=== PATIENT | female | born 1945 | race Caucasian/White ===

== ENCOUNTER 2017-10-12 13:47 | Outpatient (CLI) | payer MEDICARE ==
--- NOTE | 2017-10-12 14:36 | RAD ---
PA AND LATERAL VIEWS OF CHEST: Date: 10/12/17 HISTORY: Cough. Dyspnea. FINDINGS: Comparison made with exam of 09/08/16. Interval development of band of consolidation is seen in the right upper lobe, new since the comparis on study. No pneumothoraces or pleural effusions are identified. IMPRESSION: Findings are suspicious for pneumonia. A follow-up exam after treatment with antibiotics is recommend ed. CODE T. POS: [facility]
== END 2017-10-12 13:48 | disposition home or self-care (01) ==
LOC: RAD 13:47
PROVIDERS: ATTEND Internal Medicine Critical Care Medicine
DX: R06.00 Dyspnea, unspecified (principal)
CPT/HCPCS: 71046

== ENCOUNTER 2017-10-19 15:05 | Outpatient (CLI) | payer MEDICARE ==
--- NOTE | 2017-10-19 15:43 | RAD ---
PA AND LATERAL CHEST: Comparison: 10-12-17, 09-08-16 chest x-rays, review is also made of CT chest performed 01-08-15. FINDINGS: Heart size is within normal limits. Slight prominence to the right hilum and somewhat band like area of parenchymal change in the right upper lobe is again demonstrated, stable as compared to the 8 exam. This density is worrisome in the fact that it is more prominent than it has been on the older studies. The possibility of these changes being caused by an obstructive endobronchial lesion should be considered and chest CT would be suggested for assessment. Incidental note is made of some blunting to the left costophrenic angle which felt to be relatively s table. IMPRESSION: Stable exam as compared to the 10-12-17 study. Findings are still concerning for the possibility that this is some post obstructive changes related to possible endobronchial mass. I would suggest conside ration for CT for further assessment. POS: [facility]
== END 2017-10-19 15:06 | disposition home or self-care (01) ==
LOC: RAD 15:05
PROVIDERS: ATTEND Specialist
DX: J18.9 Pneumonia, unspecified organism (principal)
CPT/HCPCS: 71046

== ENCOUNTER 2017-11-17 14:45 | Inpatient (IN) | payer MEDICARE ==
[2017-11-17 15:52] LABS: #Lymphocytes 0.8 thou/uL (1.20-3.40); #Monocytes 0.4 thou/uL (0.11-0.59); #Neutrophils 6.5 thou/uL (1.40-6.50); %Basophils 0.2 % (0.0-1.0); %Eosinophils 0.3 % (0.0-10.0); %Lymphocytes 10.5 % (21.0-51.0); %Monocytes 4.5 % (0.0-10.0); %Neutrophils 84.5 % (42.0-75.0); Hemoglobin 13.7 g/dL (12.0-16.0); Mean Corpuscular HGB CONC 34.8 g/dL (32.0-36.0); Mean Corpuscular Hemoglobin 32.7 pg (27.0-31.0); Mean Platelet Volume 6.5 fL (7.4-10.4); Platelet Count 261 thou/uL (130-400); RBC Distribution Width 11.5 % (11.5-14.5); White Blood Cell (WBC) Count 7.7 thou/uL (4.8-10.8)
[2017-11-17 16:17] LABS: ALT (SGPT) 13 U/L (8-55); AST (SGOT) 19 U/L (5-34); Albumin 4.4 g/dL (3.4-4.8); Alkaline Phosphatase 52 U/L (40-150); Anion Gap 15 mmol/L (10-20); BUN (Urea Nitrogen) 9 mg/dL (9.8-20.1); Bilirubin, Total 0.7 mg/dL (0.2-1.2); Calc. Creatinine Clearance 0 mL/min (70-130); Calcium 8.9 mg/dL (7.8-10.44); Carbon Dioxide 24 mmol/L (23-31); Chloride 87 mmol/L (98-107); Estimated GFR-MDRD 86; Glucose 121 mg/dL (83-110); Protein, Total 7.4 g/dL (6.0-8.3); Sodium 123 mmol/L (136-145)
[2017-11-17 16:23] LABS: Potassium 2.9 mmol/L (3.5-5.1)
[2017-11-17 16:49] LABS: Bilirubin Negative (Negative); Blood, Urine Small (Negative); Clarity CLEAR (Clear); Glucose, Urine (Dipstick) Negative (Negative); Leukocyte Trace (Negative); Nitrite Negative (Negative); Protein, Urine (Dipstick) 100 mg/dL (Neg-Trace); Specific Gravity, Urine 1.018 (1.002-1.036); Urobilinogen 0.2 mg/dL (0.2-1.0)
[2017-11-17 16:51] LABS: Bacteria/HPF None Seen HPF (None Seen); Hyaline Casts/LPF 0-3 HYALINE CAST LPF (0-3 Hyaline); Pathc Cast-AUWi Flag 0.58 (0-2.49); RBC/HPF 21-50 HPF (0-3); Squamous Epithelial 0-3 HPF (0-3); WBC/HPF 0-3 HPF (0-3)
[2017-11-17] MEDS ORDERED: Pot Chloride/Pot Bicarb/Cit Ac 25 mEq Effervescent Tablet ONE (17:20)
[2017-11-17] MEDS ORDERED: Ondansetron HCl/PF 4 MG/2 ML Vial ONE (18:06)
[2017-11-17] MEDS ORDERED: Pantoprazole 40 MG VIAL ONE (18:20)
[2017-11-17] MEDS ORDERED: Acetaminophen 325 MG TAB PO PRN (21:18)
[2017-11-17] MEDS ORDERED: Ondansetron HCl/PF 4 MG/2 ML Vial IVP PRN (21:18)
[2017-11-17] MEDS ORDERED: Ondansetron ODT 4 MG TAB SL PRN (21:18)
[2017-11-17] MEDS ORDERED: Propafenone HCl 150 MG TAB PO SCH (22:30)
[2017-11-17 22:38] VITALS: BMI 22.5
[2017-11-17] MEDS: Sodium Chloride 0.9% 1,000 ML IV SCH (23:45)
[2017-11-17] MEDS: Potassium Bicarbonate/Cit Ac 25 MEQ TAB PO SCH (23:45)
[2017-11-18 00:11] LABS: Anion Gap 10 mmol/L (10-20); BUN (Urea Nitrogen) 7 mg/dL (9.8-20.1); Calc. Creatinine Clearance 76 mL/min (70-130); Calcium 8.4 mg/dL (7.8-10.44); Carbon Dioxide 26 mmol/L (23-31); Chloride 101 mmol/L (98-107); Estimated GFR-MDRD Greater than 90; Glucose 98 mg/dL (83-110); Potassium 3.1 mmol/L (3.5-5.1); Sodium 134 mmol/L (136-145)
[2017-11-18] MEDS: Propafenone HCl 150 MG TAB PO SCH ×3 (05:34→20:56)
[2017-11-18] MEDS: Potassium Bicarbonate/Cit Ac 25 MEQ TAB PO SCH (05:34)
[2017-11-18] MEDS: Sodium Chloride 0.9% 1,000 ML IV SCH (05:35)
[2017-11-18 05:36] LABS: Anion Gap 11 mmol/L (10-20); BUN (Urea Nitrogen) 8 mg/dL (9.8-20.1); Calc. Creatinine Clearance 73 mL/min (70-130); Calcium 8.6 mg/dL (7.8-10.44); Carbon Dioxide 24 mmol/L (23-31); Chloride 105 mmol/L (98-107); Estimated GFR-MDRD Greater than 90; Glucose 82 mg/dL (83-110); Potassium 3.5 mmol/L (3.5-5.1); Sodium 136 mmol/L (136-145)
--- NOTE | 2017-11-18 08:09 | HP ---
CHIEF COMPLAINT ON ADMISSION: Protracted nausea, vomiting with hyponatremia and hypokalemia. HISTORY OF PRESENT ILLNESS: The patient is a 72-year-old female who had been to see Dr. Mckinnon on the previous day for acute right ankle pain and heel pain. The patient was started on some prednisone, i t sounds like about 30 mg at which time she began to have severe nausea and vomiting and became so pr otracted and unrelenting that she came to the emergency room for further evaluation. There she was n oted to have a low sodium and low potassium. The potassium was 2.9. Sodium was 223 at which time jaycob segura was admitted for IV fluids and antiemetics. PAST MEDICAL HISTORY: Atrial fibrillation, status post ablation x2, paresthesias in the extremities, hyperlipidemia, hypertension. She is menopausal and has anxiety issues. The patient has also had d iverticulitis in the past. She has dyslipidemia. PAST SURGICAL HISTORY: Hysterectomy, right ankle surgery, the aforementioned cardiac ablation x2, brie mpectomy in the right breast and previous biopsy of the right lung. ALLERGIES: SOREN INHIBITORS, CARBOCAINE, IODINE CONTRAST, PENICILLINS and MEPIVACAINE. SOCIAL HISTORY: She is . No smoking, no alcohol. MEDICATIONS ON ADMISSION: Zocor 20 mg at bedtime, Xarelto 20 mg daily, gabapentin 300 mg daily, estr adiol 1 mg daily, Edarbyclor 40/12.5 daily, clonidine 0.1 mg p.r.n. elevated blood pressure, metoprol ol succinate 25 mg daily, propafenone 225 mg t.i.d., and vitamin D 1000 international units daily. REVIEW OF SYSTEMS: CONSTITUTIONAL: At the time of admission constitutionally she denies fever, chills, fatigue. HEENT: Denies eye pain, blurred vision. Denies runny nose, congestion or pain. CHEST: Denies shortness of breath, coughing, wheezing. CARDIOVASCULAR: Denies palpitations or chest pain. EXTREMITIES: She has significant nausea, vomiting. See HPI. MUSCULOSKELETAL: Denies pain in the joints, swelling or erythema. SKIN: No new rashes or lesions. NEUROLOGIC: No trouble with seizures, mentation or focus. ENDOCRINE: Denies swelling, hot flashes, weight gain or loss. HEMATOLOGIC: Denies bruising, bleeding or lower extremity swelling. PHYSICAL EXAMINATION: VITAL SIGNS: At the time of admission, blood pressure 138/88, pulse 81, respirations 18, temperature 98.7 with a pain scale 0/10, and O2 sat 99% on room air. GENERAL: This is a well-developed, well-nourished female, alert, cooperative, no complaint s other than right ankle pain and nausea. HEENT: Normocephalic and atraumatic. Pupils equal, round, and reactive to light. Extraocular muscl es are intact. Arcus senilis bilaterally. TMs, nares clear. Pharynx moist. NECK: Supple, trachea midline, no mass. CHEST: Clear to auscultation. HEART: Regular rate and rhythm, no murmur. BREAST: Deferred. ABDOMEN: Soft, nontender, without hepatosplenomegaly. : Deferred. EXTREMITIES: Without clubbing, cyanosis, or edema. Normal range of motion present. Symmetrical mus cular tone development noted. Good peripheral pulses in upper and lower extremities. SKIN: Without acute rashes, lesions or bruising. NEUROLOGIC: Cranial nerves are intact. Gait and cerebellar function intact. Sensory exam is intact . Mental status is clear and nonfocal. LABORATORY: Lab work on admission shows WBC 7.7, hemoglobin 13.7, hematocrit 39.4 with platelets at 261. Sodium 123, potassium 2.9, CO2 24, BUN 9, creatinine 0.67 with a glucose of 121. Liver functio ns entirely normal. Urinalysis shows 15 ketones, blood, trace leukocyte esterase with 20-50 RBCs. Chest x-ray on previous hospitalization showed a stable exam compared to 10/12/2017, findings are sti ll concerning for possibility of some postobstructive changes related to possible endobronchial mass. CTs for further assessment is recommended. The patient has not had that exam. ASSESSMENT: 1. Protracted nausea and vomiting. 2. Adverse reaction to medication - prednisone. 3. Hypokalemia. 4. Hyponatremia. 5. Right ankle pain. 6. History of benign bronchogenic mass that needs reevaluation. PLAN: The plan is continued IV fluids and antiemetics. A trial of diet starting with clear liquids and serial reevaluation. We will go ahead and get CT of the chest and an MRI of the right ankle to a ssess what is going on with the ankle.
[2017-11-18] MEDS: Gabapentin 300 MG CAP PO SCH (08:23)
[2017-11-18] MEDS: Rivaroxaban 10 MG TAB PO SCH (08:24)
[2017-11-18] MEDS: Estradiol 1 MG TAB PO SCH (08:40)
--- NOTE | 2017-11-18 10:11 | CT ---
CHEST CT SCAN WITHOUT IV CONTRAST: History: 72-year-old female with history of follow up pneumonia. Comparison: Chest PA and lateral, 10-19-17; prior chest CT scan, 01-08-15. FINDINGS: Large nodular mass opacity in the right upper lobe extending from the lateral chest wall into the rig ht hilum. There is nodular fullness in the right hilum, evidence for some adenopathy up to 2 cm. Ther e is also adenopathy in the paratracheal and right sided superior mediastinum with right paratracheal adenopathy up to 1.5 cm and prevascular nodes up to 1.1 cm in diameter. No evidence of pleural effus ion or pericardial effusion. Aortic root measures approximately 3.6 cm. 2.2 cm diameter right adrenal mass and 2.5 cm diameter left adrenal mass. No focal liver masses. IMPRESSION: Somewhat multinodular mass opacity in the right mid chest, right upper lobe extending from the latera l chest into the right hilum with some associated right hilar and right paratracheal, azygous, and pr evascular adenopathy very concerning for primary lung cancer with associated adenopathy. Enlarged rig ht and left adrenal glands worrisome for adrenal metastasis. Follow up PET scan is recommended for further assessment. POS: [facility]
--- NOTE | 2017-11-18 10:37 | CT ---
CT RIGHT FOOT WITHOUT IV CONTRAST: INDICATIONS: Right-sided foot pain. FINDINGS: There is diffuse osteopenia. There are healed, instrumented fractures involving the medial malleolus and the lateral malleolus. No osteochondral defect seen involving the talar dome. The visualized s ubtalar articulation appears within normal limits. A small bone island is present within the cuboid. Lisfranc alignment appears within normal limits. No appreciable enthesopathic change is present. IMPRESSION: 1. No acute osseous abnormality. 2. Diffuse osteopenia. 3. Healed fractures of the medial and lateral malleolus. POS: [facility]
[2017-11-18] MEDS: Simvastatin 20 MG TAB PO SCH (20:56)
[2017-11-19 05:58] LABS: #Basophils 0.1 thou/uL (0.0-0.2); #Lymphocytes 1.5 thou/uL (1.20-3.40); #Monocytes 0.7 thou/uL (0.11-0.59); #Neutrophils 3.5 thou/uL (1.40-6.50); %Basophils 0.9 % (0.0-1.0); %Eosinophils 0.5 % (0.0-10.0); %Lymphocytes 25.7 % (21.0-51.0); %Monocytes 11.9 % (0.0-10.0); Hemoglobin 12.3 g/dL (12.0-16.0); Mean Corpuscular HGB CONC 33.6 g/dL (32.0-36.0); Mean Corpuscular Hemoglobin 33.2 pg (27.0-31.0); Mean Corpuscular Volume 98.8 fl (81.0-99.0); Platelet Count 211 thou/uL (130-400); RBC Distribution Width 11.9 % (11.5-14.5); White Blood Cell (WBC) Count 5.7 thou/uL (4.8-10.8)
[2017-11-19 06:07] LABS: Anion Gap 9 mmol/L (10-20); BUN (Urea Nitrogen) 7 mg/dL (9.8-20.1); Calc. Creatinine Clearance 74 mL/min (70-130); Calcium 8.2 mg/dL (7.8-10.44); Carbon Dioxide 24 mmol/L (23-31); Cardiac Risk 2.6 (Less than 4.5); Chloride 109 mmol/L (98-107); Cholesterol 169 mg/dl (< 200 Desired); Estimated GFR-MDRD Greater than 90; Glucose 78 mg/dL (83-110); HDL Cholesterol 66 mg/dL (>60 Neg Risk); LDL Cholesterol, Calculated 90 mg/dL; Potassium 3.5 mmol/L (3.5-5.1); Sodium 138 mmol/L (136-145); Triglycerides 63 mg/dL (Less than 150)
[2017-11-19] MEDS: Propafenone HCl 150 MG TAB PO SCH ×3 (06:12→20:36)
[2017-11-19] MEDS: Gabapentin 300 MG CAP PO SCH (07:58)
[2017-11-19] MEDS: Estradiol 1 MG TAB PO SCH (07:58)
[2017-11-19] MEDS: Rivaroxaban 10 MG TAB PO SCH (07:58)
--- NOTE | 2017-11-19 12:09 | CON ---
DATE OF CONSULTATION: 11/19/2017 REASON FOR CONSULTATION: Right side of the lung mass. HISTORY OF PRESENT ILLNESS: Ms. Mcleod is a pleasant 72-year-old female, who I have known for many ye ars, originally saw her back in 2014 for a spot on the right lung. At that time, she underwent a bro nchoscopy, which was negative. She underwent a PET scan, which showed no uptake. This was thought t o be arteriovenous malformation. It has been followed off and on in the office for the last 3 years without any growth. She saw me in mid September for routine follow up in the office. She was doing w ell, but her x-ray showed a change in the right upper lobe. I will order a CT scan at that time, but the patient has been putting that off. She came to the hospital yesterday with nausea, vomiting, hy ponatremia, and hypokalemia. She was complaining of right ankle pain and right heel pain that is bet ter today. She underwent a CT of the chest, which demonstrated a definite mass in the lateral aspect of the right upper lobe. It looked like there is probably right hilar and right paratracheal adenop athy. She also had enlarged right and the left adrenal gland suspicious for metastasis. PAST MEDICAL HISTORY: 1. Atrial fibrillation. 2. Small right upper lobe density. 3. Cardiac ablation. 4. Hyperlipidemia. 5. Hypertension. PAST SURGICAL HISTORY: 1. Hysterectomy. 2. Right ankle surgery. 3. Right breast surgery. ALLERGIES: SOREN INHIBITORS, CARBOCAINES, IODINE, PENICILLIN, MEPIVACAINE. SOCIAL HISTORY: Nonsmoker, does not consume alcohol. She has never been a smoker. MEDICATIONS PRIOR TO ADMISSION: Zocor, Xarelto, gabapentin, estradiol, clonidine, metoprolol, and pr opafenone. REVIEW OF SYSTEMS: She denies any weight loss. No cough, no hemoptysis. PHYSICAL EXAMINATION: VITAL SIGNS: Temperature 97.4, pulse 65, respirations 18, and O2 saturation 98% on room air. GENERAL: She is awake and alert. She is quite tearful. HEENT: Unremarkable. NECK: Without adenopathy or JVD. LUNGS: Clear without wheezing or rhonchi. CARDIAC: S1 and S2, regular. ABDOMEN: Soft. EXTREMITIES: No edema. LABORATORY DATA: White blood cell count 5.7, hematocrit 36.8, platelet count 211. Sodium 138, potas sium 3.5, chloride 109, CO2 of 24, BUN 7, creatinine 0.6, glucose 78. Cortisol level has not been do ne at this point. I reviewed her CT scan in detail. ASSESSMENT: 1. Gross enlargement of right peritracheal right hilar lymph nodes along with a new mass density lat erally on the right. This is very suspicious for cancer. 2. Possible adrenal metastasis. 3. Electrolyte problems at the time of admission. This could be from renal insufficiency. PLAN: She needs a bronchoscopy with biopsy. I am trying to schedule that for Tuesday or Tuesday. We need to check her adrenal function. Therefore, cortisol will be ordered. Seventy minutes of time was spent performing consultation; of that time greater than 50% was spent wi th the patient and/or in the patient's unit.
[2017-11-19] MEDS: Simvastatin 20 MG TAB PO SCH (20:36)
[2017-11-20] MEDS: Propafenone HCl 150 MG TAB PO SCH ×3 (06:02→20:47)
[2017-11-20] MEDS: Rivaroxaban 10 MG TAB PO SCH (08:30)
[2017-11-20] MEDS: Estradiol 1 MG TAB PO SCH (08:30)
[2017-11-20] MEDS: Gabapentin 300 MG CAP PO SCH (08:31)
--- NOTE | 2017-11-20 10:51 | PRG ---
DATE OF SERVICE: 11/20/2017 SUBJECTIVE: She is in better spirits today than she was yesterday. OBJECTIVE: VITAL SIGNS: Temperature 98.1, pulse 68, respirations 18, O2 sat 97%, blood pressure 143/93. HEENT: Unremarkable. NECK: No JVD. LUNGS: Clear without wheezing. CARDIAC: S1 and S2 regular. ABDOMEN: Soft. EXTREMITIES: No edema. ASSESSMENT: Right upper lobe lung mass. PLAN: Bronchoscopy under general anesthesia tomorrow. I discussed risk with the patient including b leeding, infection, and accidental lung puncture. She has agreed to proceed. I will go ahead and ho ld her Xarelto as to minimize her chances of bleeding. Preoperative bronchoscopy orders are in the c [facility].
[2017-11-20] MEDS ORDERED: Zolpidem Tartrate 5 MG TAB PO PRN (11:09)
[2017-11-20] MEDS: Simvastatin 20 MG TAB PO SCH (20:45)
[2017-11-21] MEDS: Propafenone HCl 150 MG TAB PO SCH ×3 (06:29→14:55)
[2017-11-21] MEDS ORDERED: Sodium Chloride 0.9% 1,000 ML IV SCH (07:00)
[2017-11-21] MEDS ORDERED: SUGAMMADEX SODIUM 500 MG/5 ML VIAL ONE (08:42)
[2017-11-21] MEDS ORDERED: SUGAMMADEX SODIUM 200 MG/2 ML VIAL ONE (08:42)
[2017-11-21] MEDS ORDERED: Promethazine HCl 25 MG/ML VIAL IM PRN (08:53)
[2017-11-21] MEDS ORDERED: Meperidine HCl/PF 25 MG/ML VIAL SLOW IVP PRN (08:53)
[2017-11-21] MEDS ORDERED: Morphine Sulfate 2 MG/ML SYRINGE SLOW IVP PRN (08:53)
[2017-11-21] MEDS ORDERED: Ondansetron HCl/PF 4 MG/2 ML Vial IVP PRN (08:53)
[2017-11-21] MEDS ORDERED: Promethazine HCl 25 MG/ML VIAL SLOW IVP PRN (08:53)
[2017-11-21] MEDS ORDERED: Fentanyl 100 MCG/2 ML VIAL ONE (08:58)
--- NOTE | 2017-11-21 09:19 | OP ---
DATE OF PROCEDURE: 11/21/2017 SURGEON: Everton Silva M.D. PROCEDURE: Bronchoscopy. PREOPERATIVE DIAGNOSIS: Right upper lobe mass. POSTOPERATIVE DIAGNOSIS: Right upper lobe endobronchial mass in the lateral segment of the right upp er lobe. ANESTHESIA: General endotracheal anesthesia. DESCRIPTION OF PROCEDURE: Informed consent was obtained from the patient. She was brought to the en doscopy suite. She was placed on cardiopulmonary monitoring. She was intubated with an 8.0 endotrac heal tube by the Anesthesia team. She was placed on mechanical ventilation under general anesthesia for the duration of the procedure. The bronchoscope was placed into the endotracheal tube. The kermit was sharp. The left upper lobe, left lower lobe and left main stem bronchus were normal in appearance. The right mainstem bronchus, right middle lobe, and right lower lobe were normal in appearance. The right upper lobe was normal i n appearance up until the bifurcation of the 3 subsegments. It looked like there was tumor involved in the lateral and posterior segments, but spared the superior segment. A series of endobronchial br ushings were done in the aforementioned segments. Fluoroscopy was used. Endobronchial biopsies were also performed. There was minimal bleeding. She tolerated the procedure well. She was transported to the recovery area in stable condition.
[2017-11-21] MEDS: Estradiol 1 MG TAB PO SCH (11:43)
[2017-11-21] MEDS: Gabapentin 300 MG CAP PO SCH (11:44)
[2017-11-21] MEDS ORDERED: Glycopyrrolate 0.2 MG/ML 5 ML SYRINGE ONE (15:33)
[2017-11-21] MEDS ORDERED: Lidocaine 1% PF 5 ML VIAL ONE (15:33)
[2017-11-21] MEDS ORDERED: PROPOFOL 200 MG/20 ML VIAL ONE (15:33)
[2017-11-21 17:10] VITALS: BP 135/85; TEMP 98
[2017-11-22] MEDS ORDERED: Rivaroxaban 10 MG TAB PO SCH (09:00)
[2017-11-24 10:21] LABS: Fungus Stain Final report (.)
[2017-12-21 05:17] LABS: Fungus Culture Final report (.)
== END 2017-11-21 15:59 | disposition home or self-care (01) | DRG 641 ==
LOC: ERS 14:45 → ERHOLD 20:23 → T4-B 21:33
PROVIDERS: ADMIT Specialist; ATTEND Specialist
PROC: 0BD48ZX Extraction of Right Upper Lobe Bronchus, Via Natural or Artificial Opening Endoscopic, Diagnostic (ICD-10-PCS; principal; 2017-11-21)
DX: E87.1 Hypo-osmolality and hyponatremia (principal); I48.91 Unspecified atrial fibrillation; E87.6 Hypokalemia; E78.5 Hyperlipidemia, unspecified; I10 Essential (primary) hypertension; F41.9 Anxiety disorder, unspecified; T38.0X5A Adverse effect of glucocorticoids and synthetic analogues, initial encounter; R91.8 Other nonspecific abnormal finding of lung field; M25.571 Pain in right ankle and joints of right foot
CPT/HCPCS: 36415; 71250; 80048; 80053; 80061; 81003; 81015; 82533; 85025; 87070; 87086; 87102; 87116; 87205; 87206; 88104; 88112; 88305; 88313; 88341; 88342; 96361; 96374; 96375; A4216; C9113; J2001; J2405; J2704; J3010

== ENCOUNTER 2017-12-01 10:19 | Outpatient (CLI) | payer MEDICARE ==
--- NOTE | 2017-12-02 07:27 | PET ---
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 The e xam is requested for initial staging. TECHNIQUE: PET scanning with CT attenuation was performed from the base of the brain through the proximal thighs following the intravenous administration of 11.5 mCi [id number] in the right antecubital fossa. Imagin g was performed after an uptake interval of 45 minutes. COMPARISON: None. CORRELATION: CT chest without contrast dated 11/18/17. FINDINGS: There are multiple hypermetabolic mediastinal lymph nodes with a maximum SUV of 10.3 in the right par atracheal region. Hypermetabolic lymph nodes in the right hilum demonstrate a SUV of 11.3. The righ t upper lobe lung mass seen on the CT scan has increased FDG localization and a SUV of 9.7. There are hypermetabolic adrenal masses with a SUV of 5.7 on the right and 3.0 on the left. There is mildly increased uptake in the spinous process of T1 vertebra with a SUV of 2.5. Nonhyperme tabolic sclerotic foci is seen in the left iliac bone. There is physiologic activity in the GI and tracts. No hypermetabolic liver lesion seen. The CT scan used for attenuation correction demonstrates no evidence of pleural effusions or ascites. IMPRESSION: 1. Right lung malignancy with mediastinal and right hilar lymph lakisha and bilateral adrenal metastas es. 2. Equivocal finding in the spinous process of T1. The nonhypermetabolic sclerotic foci in the left iliac bone may either be due to sclerotic metastases or bone islands. Further evaluation with bone scan would be helpful. POS: [facility]
== END 2017-12-01 10:20 | disposition home or self-care (01) ==
LOC: PET 10:19
PROVIDERS: ATTEND Specialist
DX: C34.90 Malignant neoplasm of unspecified part of unspecified bronchus or lung (principal); C77.1 Secondary and unspecified malignant neoplasm of intrathoracic lymph nodes; C79.71 Secondary malignant neoplasm of right adrenal gland; C79.72 Secondary malignant neoplasm of left adrenal gland; C78.1 Secondary malignant neoplasm of mediastinum
CPT/HCPCS: 78815; A9552

== ENCOUNTER 2018-01-22 10:27 | Emergency (ER) | payer MEDICARE ==
[2018-01-22 11:07] LABS: Hemoglobin 10.8 g/dL (12.0-16.0); Mean Corpuscular HGB CONC 34.1 g/dL (32.0-36.0); Mean Corpuscular Hemoglobin 32.9 pg (27.0-31.0); Mean Corpuscular Volume 96.3 fl (81.0-99.0); Mean Platelet Volume 6.3 fL (7.4-10.4); Platelet Count 386 thou/uL (130-400); RBC Distribution Width 12.7 % (11.5-14.5); White Blood Cell (WBC) Count 25.6 thou/uL (4.8-10.8)
[2018-01-22 11:24] LABS: Band 4 % (5-11); Lymphocytes 2 % (21-51); MDiff Complete? YES; Neutrophil 94 % (42-75)
[2018-01-22 11:31] LABS: ALT (SGPT) 37 U/L (8-55); AST (SGOT) 17 U/L (5-34); Alkaline Phosphatase 117 U/L (40-150); Anion Gap 10 mmol/L (10-20); BUN (Urea Nitrogen) 15 mg/dL (9.8-20.1); Bilirubin, Total 1.1 mg/dL (0.2-1.2); Calc. Creatinine Clearance 0 mL/min (70-130); Calcium 9.4 mg/dL (7.8-10.44); Carbon Dioxide 26 mmol/L (23-31); Chloride 96 mmol/L (98-107); Estimated GFR-MDRD 89; Globulin 2.4 g/dL (2.4-3.5); Glucose 103 mg/dL (83-110); Potassium 4.1 mmol/L (3.5-5.1); Protein, Total 6.4 g/dL (6.0-8.3); Sodium 128 mmol/L (136-145)
[2018-01-22 11:37] LABS: Bilirubin Negative (Negative); Blood, Urine Negative (Negative); Clarity CLEAR (Clear); Glucose, Urine (Dipstick) Negative (Negative); Leukocyte Trace (Negative); Nitrite Negative (Negative); Protein, Urine (Dipstick) Negative (Neg-Trace); Specific Gravity, Urine 1.007 (1.002-1.036); Urobilinogen 0.2 mg/dL (0.2-1.0)
[2018-01-22 11:40] LABS: Bacteria/HPF None Seen HPF (None Seen); Hyaline Casts/LPF 0-3 HYALINE CAST LPF (0-3 Hyaline); RBC/HPF 0-3 HPF (0-3); Squamous Epithelial None Seen HPF (0-3); WBC/HPF 0-3 HPF (0-3)
== END 2018-01-22 14:35 | disposition home or self-care (01) ==
LOC: ERS 10:27
DX: E86.0 Dehydration (principal); E78.5 Hyperlipidemia, unspecified; I10 Essential (primary) hypertension; I48.91 Unspecified atrial fibrillation; Z79.899 Other long term (current) drug therapy; Z79.01 Long term (current) use of anticoagulants
CPT/HCPCS: 36415; 80053; 81003; 81015; 85025; 96360; 96361

== ENCOUNTER 2019-01-07 13:59 | Emergency (ER) | payer MEDICARE ==
[2019-01-07] MEDS ORDERED: Ketorolac Tromethamine 30 MG/ML VIAL ONE (14:56)
== END 2019-01-07 16:12 | disposition home or self-care (01) ==
LOC: ERS 13:59
DX: M46.1 Sacroiliitis, not elsewhere classified (principal); E78.5 Hyperlipidemia, unspecified; I10 Essential (primary) hypertension; I48.91 Unspecified atrial fibrillation; Z85.118 Personal history of other malignant neoplasm of bronchus and lung
CPT/HCPCS: 87086; 96372; J1885

== ENCOUNTER 2019-01-21 11:53 | Emergency (ER) | payer MEDICARE ==
[2019-01-21 12:18] LABS: #Lymphocytes 0.4 thou/uL (1.20-3.40); #Monocytes 0.7 thou/uL (0.11-0.59); #Neutrophils 6.6 thou/uL (1.40-6.50); %Eosinophils 0.2 % (0.0-10.0); %Lymphocytes 5.7 % (21.0-51.0); %Monocytes 9.2 % (0.0-10.0); %Neutrophils 84.9 % (42.0-75.0); Hemoglobin 9.7 g/dL (12.0-16.0); Mean Corpuscular HGB CONC 33.1 g/dL (32.0-36.0); Mean Corpuscular Hemoglobin 32.2 pg (27.0-31.0); Mean Corpuscular Volume 97.1 fL (78.0-98.0); Mean Platelet Volume 6.8 fL (7.4-10.4); Platelet Count 314 thou/uL (130-400); RBC Distribution Width 14.4 % (11.5-14.5); White Blood Cell (WBC) Count 7.8 thou/uL (4.8-10.8)
[2019-01-21] MEDS ORDERED: Morphine 4 MG/ML VIAL ONE ×2 (12:22→13:36)
[2019-01-21] MEDS ORDERED: Metoclopramide HCl 10 MG/2 ML VIAL ONE (12:23)
[2019-01-21 12:41] LABS: ALT (SGPT) 15 U/L (8-55); AST (SGOT) 27 U/L (5-34); Albumin 3.7 g/dL (3.4-4.8); Alkaline Phosphatase 296 U/L (40-150); Anion Gap 16 mmol/L (10-20); BUN (Urea Nitrogen) 12 mg/dL (9.8-20.1); Bilirubin, Total 0.4 mg/dL (0.2-1.2); Calc. Creatinine Clearance 0 mL/min (70-130); Calcium 9.1 mg/dL (7.8-10.44); Carbon Dioxide 24 mmol/L (23-31); Chloride 96 mmol/L (98-107); Estimated GFR-MDRD 82; Globulin 3.2 g/dL (2.4-3.5); Glucose 112 mg/dL (83-110); Potassium 3.5 mmol/L (3.5-5.1); Protein, Total 6.9 g/dL (6.0-8.3); Sodium 132 mmol/L (136-145)
--- NOTE | 2019-01-21 12:41 | RAD ---
EXAM: Single view of the chest HISTORY: Nausea and vomiting. History of lung cancer COMPARISON: 07/22/2016 FINDINGS: Single view of the chest shows a normal sized cardiomediastinal silhouette. Scarring is se en in the midportion of the right thorax. There is no evidence of consolidation, mass, or pleural effusion. The bones are unremarkable. IMPRESSION: No evidence of acute cardiopulmonary disease
[2019-01-21] MEDS ORDERED: diphenhydrAMINE 50 MG/ML VIAL ONE (12:48)
[2019-01-21 13:30] LABS: Bilirubin Negative (Negative); Blood, Urine Negative (Negative); Clarity CLEAR (Clear); Glucose, Urine (Dipstick) Negative (Negative); Leukocyte Negative (Negative); Nitrite Negative (Negative); Protein, Urine (Dipstick) Negative (Neg-Trace); Specific Gravity, Urine 1.008 (1.002-1.036); Urobilinogen 0.2 mg/dL (0.2-1.0); pH, Urine 7.5 (5.0-9.0)
== END 2019-01-21 14:21 | disposition home or self-care (01) ==
LOC: ERS 11:53
DX: M79.89 Other specified soft tissue disorders (principal); R53.1 Weakness; R11.2 Nausea with vomiting, unspecified; I48.91 Unspecified atrial fibrillation; E78.5 Hyperlipidemia, unspecified; I10 Essential (primary) hypertension; Z79.899 Other long term (current) drug therapy
CPT/HCPCS: 36415; 71045; 80053; 81003; 83605; 84484; 85025; 87040; 93005; 96365; 96375; J1200; J2270; J2765

== ENCOUNTER 2019-04-03 12:05 | Observation (INO) | payer MEDICARE ==
[2019-04-03] MEDS ORDERED: hydrALAZINE 20 MG/ML VIAL ONE (12:37)
[2019-04-03] MEDS ORDERED: Labetalol HCl 100 MG/20 ML VIAL ONE ×2 (12:42→12:44)
[2019-04-03 13:09] LABS: #Basophils 0.2 thou/uL (0.0-0.2); #Lymphocytes 0.2 thou/uL (1.20-3.40); #Monocytes 0.7 thou/uL (0.11-0.59); #Neutrophils 6.4 thou/uL (1.40-6.50); %Eosinophils 0.6 % (0.0-10.0); %Lymphocytes 2.5 % (21.0-51.0); %Monocytes 8.8 % (0.0-10.0); %Neutrophils 86.1 % (42.0-75.0); Hemoglobin 10.6 g/dL (12.0-16.0); MDiff Complete? YES; Mean Corpuscular HGB CONC 33.2 g/dL (32.0-36.0); Mean Corpuscular Hemoglobin 30.8 pg (27.0-31.0); Mean Corpuscular Volume 92.6 fL (78.0-98.0); Mean Platelet Volume 8.8 fL (7.4-10.4); Platelet Count 61 thou/uL (130-400); Platelet Morphology Comment Appears Decreased; Polychromasia SLIGHT = 2-3 cells (100X) (0-2/hpf); RBC Distribution Width 19.8 % (11.5-14.5); Red Blood Cell (RBC) Count 3.44 mill/uL (4.20-5.40); White Blood Cell (WBC) Count 7.4 thou/uL (4.8-10.8)
--- NOTE | 2019-04-03 13:11 | CT ---
CT BRAIN WITHOUT CONTRAST: HISTORY:Nausea and generalized weakness, lung cancer. Currently on oral chemotherapy COMPARISON:06/07/2016 FINDINGS: There are foci of decreased attenuation in the periventricular white matter, consistent with chronic small vessel ischemic disease. No evidence of acute infarct, hemorrhage, midline shift or abnormal extra-axial fluid collections is seen. The ventricular size is appropriate and the basilar cisterns are patent. The bony calvarium is intact. The visualized paranasal sinuses and mastoid air cells are well aerated. Absence of IV contrast precludes exclusion of metastatic disease. IMPRESSION: No CT evidence of acute intracranial process.
[2019-04-03 13:17] LABS: ALT (SGPT) 33 U/L (8-55); AST (SGOT) 58 U/L (5-34); Albumin 3.4 g/dL (3.4-4.8); Alkaline Phosphatase 266 U/L (40-150); Anion Gap 14 mmol/L (10-20); BUN (Urea Nitrogen) 39 mg/dL (9.8-20.1); Bilirubin, Total 0.5 mg/dL (0.2-1.2); Calc. Creatinine Clearance 0 mL/min (70-130); Calcium 8.6 mg/dL (7.8-10.44); Carbon Dioxide 19 mmol/L (23-31); Chloride 97 mmol/L (98-107); Estimated GFR-MDRD 60; Globulin 2.1 g/dL (2.4-3.5); Glucose 75 mg/dL (83-110); Potassium 5.4 mmol/L (3.5-5.1); Protein, Total 5.5 g/dL (6.0-8.3); Sodium 125 mmol/L (136-145)
--- NOTE | 2019-04-03 13:17 | RAD ---
XR Chest 1 View Portable HISTORY: Lung cancer COMPARISON: 01/21/2019 FINDINGS: There has been interval development of a right-sided pleural effusion. The heart size is normal. The aorta is tortuous. The left lung is clear. Scarring in the right midlung is again seen. Increased density in the right midlung may either be due to fluid in the fissure or underlying mass.
[2019-04-03] MEDS ORDERED: Ondansetron ODT 4 MG TAB ONE (13:33)
[2019-04-03 13:39] LABS: CKMB 6.5 ng/mL (0-6.6)
[2019-04-03] MEDS ORDERED: Aspirin Chewable 81 MG TAB ONE (14:56)
[2019-04-03] MEDS ORDERED: Ondansetron PF 4 MG/2 ML Vial ONE (15:06)
[2019-04-03 15:29] LABS: Bacteria/HPF 1+ HPF (None Seen); Bilirubin Negative (Negative); Blood, Urine Negative (Negative); Clarity Clear (Clear); Glucose, Urine (Dipstick) Normal (Negative); Leukocyte 250 Leu/uL (Negative); Nitrite Negative (Negative); Protein, Urine (Dipstick) 30 mg/dL (Neg-Trace); RBC/HPF 0-3 HPF (0-3); Squamous Epithelial 0-3 HPF (0-3); Urobilinogen Normal mg/dL (Less than 2); WBC/HPF 21-50 HPF (0-3)
[2019-04-03] MEDS ORDERED: cefTRIAXone\\ROCEPHIN 2 GM VIAL ONE (15:51)
[2019-04-03] MEDS ORDERED: Ondansetron ODT 4 MG TAB SL PRN (16:52)
[2019-04-03] MEDS ORDERED: HYDROcodone/Acetaminophen 5/325 mg Tablet PO PRN ×2 (16:52)
[2019-04-03] MEDS ORDERED: Ondansetron PF 4 MG/2 ML Vial IVP PRN (16:52)
[2019-04-03] MEDS ORDERED: Sodium Chloride 0.9% 1,000 ML IV SCH (16:52)
[2019-04-03 16:59] LABS: Troponin I 0.046 ng/mL (< 0.028)
[2019-04-03] MEDS: traMADol HCl 50 MG TAB PO PRN ×2 (18:16→22:49)
[2019-04-03 19:39] LABS: Troponin I 0.041 ng/mL (< 0.028)
[2019-04-03] MEDS ORDERED: Acetaminophen 325 MG TAB PO PRN (19:43)
[2019-04-03] MEDS ORDERED: Ondansetron ODT 4 MG TAB PO PRN (19:43)
[2019-04-03] MEDS ORDERED: Pantoprazole 40 MG VIAL IVP SCH (20:00)
[2019-04-03 20:29] LABS: Anion Gap 16 mmol/L (10-20); BUN (Urea Nitrogen) 32 mg/dL (9.8-20.1); Calc. Creatinine Clearance 50 mL/min (70-130); Calcium 8.4 mg/dL (7.8-10.44); Carbon Dioxide 15 mmol/L (23-31); Chloride 99 mmol/L (98-107); Estimated GFR-MDRD 68; Glucose 100 mg/dL (83-110); Potassium 4.9 mmol/L (3.5-5.1); Sodium 125 mmol/L (136-145)
[2019-04-03] MEDS: Dextrose 5 % And 0.9 % NaCl 1,000 ML IV SCH (21:14)
--- NOTE | 2019-04-03 23:06 | HP ---
PRIMARY CARE PHYSICIAN: Dr. Larsen. ONCOLOGIST: Dr. Barraza at [facility]. CHIEF COMPLAINT: Generalized weakness and also difficulty swallowing. HISTORY OF PRESENT ILLNESS: The history of present illness is taken primarily from the who is at the bedside. However, the patient does contribute some information to the history as she is extremely weak. Ms. Mcleod is a very pleasant 73-year-old female, who has a history of stage IV adenocarcinoma of the lungs. She has been receiving treatment at [facility]. 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 He says that after this she has been getting extremely weak and she was admitted to the hospital there at [facility] after she was so weak that she was having difficulty walking. This was about a month ago. It was felt that she was severely hyponatremic. Apparently at that time, she was also complaining of some back pain and was told that she had some lesions in her arms as well as her liver. She is unclear whether or not there was any lumbar vertebral lesions or not, but apparently they treated her there. She says over the course of approximately 10 days and then was released, but says that her weakness never really got better and in fact it has gotten progressively worse. She says that in the last 3-4 days, she started feeling extremely nauseated, sometimes the nausea is worse after eating and she also says that she has been vomiting as well at least 4-5 times a day and then today she could barely keep anything down. Her says that he tried to give her a pain medication earlier today and she could not swallow it. She was choking on it and at this point, he felt it was time to bring her in for further evaluation. The patient denies any abdominal pain. She also denies any pain with swallowing. She has not had any hematemesis and there has been no melena. No blood in the stool. There has been no fevers, no chills, and she also admits that her appetite is poor as well. The patient denies any fevers or chills and otherwise no other symptoms. In the ER, she was evaluated and was found to have a sodium, which is slightly lower than her baseline at 125 with a baseline of approximately 128. Her potassium was slightly elevated and she appears to be clinically dehydrated and she is being placed on observation for further evaluation. REVIEW OF SYSTEMS: CONSTITUTIONAL: There has been no fevers, chills, no night sweats, no weight loss. HEENT: She denies any headaches. No dizziness. No visual changes. No sore throat or rhinorrhea. NECK: No neck pain, no adenopathy. PULMONARY: She has had a dry cough, occasional shortness of breath, but no wheezing. No rhonchi. CARDIOVASCULAR: She denies any chest pain. No PND. No orthopnea. She does admit to some lower extremity edema. GASTROINTESTINAL: As in history of present illness. GENITOURINARY: No urinary frequency, no hematuria, no hesitancy. MUSCULOSKELETAL: She admits to generalized lower extremity weakness, but no joint pains or swelling. SKIN AND INTEGUMENT: She did does not admit any skin changes or any rashes. PSYCHIATRIC: No symptoms of anxiety or depression. ENDOCRINE: No heat or cold intolerance. PAST MEDICAL HISTORY: Significant for chronic atrial fibrillation, hyperlipidemia, hypertension, diverticulitis as well as stage IV adenocarcinoma of the lungs. PAST SURGICAL HISTORY: She has had a hysterectomy, right ankle surgery, cardiac ablation, lumpectomy of the right breast and right lung biopsy. ALLERGIES: SOREN INHIBITORS, PENICILLIN, MEPIVACAINE, IV CONTRAST. SOCIAL HISTORY: She is currently and her is her medical power of workers compensation attorney. His name is Gurdeep Cheung. She would like to be a full code. She is a nonsmoker and nondrinker. FAMILY HISTORY: Significant for hypertension. CURRENT MEDICATIONS: Include: 1. Tagrisso 80 mg daily. 2. Samsca 15 mg once daily. 3. Gabapentin 300 mg daily. 4. Tramadol 50 mg daily. 5. Glycolax 17 g twice daily. 6. Robaxin 500 mg as needed. 7. Calcium citrate plus vitamin D daily. 8. Vitamin B12 500 mcg daily. 9. Magnesium oxide 400 mg daily. 10. Edarbyclor 40/12.5 mg daily. 11. Simvastatin 20 mg daily. 12. Xarelto 15 mg daily. 13. Estrace 1 mg daily. 14. Metoprolol extended release 25 mg daily. 15. Rythmol 225 mg daily. 16. Cholecalciferol. 17. Vitamin D3 1000 units daily. PHYSICAL EXAMINATION: GENERAL: She is alert and oriented. She appears to be in no acute distress. She is a bit frail as well as cachectic in appearance. VITAL SIGNS: Blood pressure initially 94/68, heart rate 87, respiratory rate of 18, temperature is 97.5. HEENT: Her pupils are equal, round, and reactive to light. Extraocular muscles are intact. Her sclerae are anicteric. Throat there is no erythema, no exudates. No evidence of any thrush. NECK: No adenopathy, no bruits and no jugular venous distention. LUNGS: Clear to auscultation. There is no wheezing, no rales, no rhonchi. CARDIOVASCULAR: She has a normal S1 and S2. There is no S3 or S4. No murmurs, clicks or rubs. ABDOMEN: Soft, it is nontender and nondistended. Positive for bowel sounds. No rebound. No guarding. No organomegaly. EXTREMITIES: She has 2+ pitting edema on her entire calves. There is no joint effusions or warmth. NEUROLOGIC: Her muscle strength is 5/5 in her upper and lower extremities. Cranial nerves are intact. SKIN AND INTEGUMENT: There is no skin breakdown, no rashes. LABORATORY DATA: White blood cell count 7.4, hemoglobin 10.6, hematocrit is 31.8, and platelet count is 61. Sodium 125, potassium 5.4, chloride is 97, CO2 is 19, BUN of 39, creatinine 0.92, glucose is 75, alkaline phosphatase is 266. Troponin is 0.048. ASSESSMENT: This is a pleasant 73-year-old female who presents with generalized weakness and dysphagia. She has also had a 30-pound weight loss and is found to be more hyponatremic than usual as well as findings consistent with dehydration. 1. [id number] hyponatremia. This is likely the cause of some of her weakness. This is likely due to volume depletion. 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 Therefore, we will need to be careful with giving her volume repletion. For this reason, we will go ahead and have Nephrology on board as well, but we will carefully hydrate her with normal saline and monitor her sodium likely several times a day just to keep an eye on the level. 2. Hyperkalemia. I suspect this is due to volume depletion as well and hopefully, this should correct on its own with hydration and if not then this will be actively treated with a potassium binder such as Kayexalate. 3. Dysphagia. We will need to get a speech evaluation and if she has significant problems, then possibly an alternate means of nutrition and GI evaluation, if needed. 4. Chronic atrial fibrillation. We will need to consider bridging her with regard to her anticoagulation. She is having difficulty swallowing pills and restart her usual medications as tolerated. Further recommendations to follow. Job ID: [id number]
[2019-04-04] MEDS: traMADol HCl 50 MG TAB PO PRN ×7 (02:28→23:04)
[2019-04-04 05:03] LABS: #Lymphocytes 0.2 thou/uL (1.20-3.40); #Monocytes 0.5 thou/uL (0.11-0.59); #Neutrophils 4.8 thou/uL (1.40-6.50); %Basophils 0.8 % (0.0-1.0); %Eosinophils 0.8 % (0.0-10.0); %Lymphocytes 3.7 % (21.0-51.0); %Monocytes 9.6 % (0.0-10.0); %Neutrophils 85.1 % (42.0-75.0); Hemoglobin 10.9 g/dL (12.0-16.0); Mean Corpuscular HGB CONC 32.9 g/dL (32.0-36.0); Mean Corpuscular Volume 94.2 fL (78.0-98.0); Mean Platelet Volume 9.4 fL (7.4-10.4); Platelet Count 73 thou/uL (130-400); RBC Distribution Width 19.8 % (11.5-14.5); Red Blood Cell (RBC) Count 3.52 mill/uL (4.20-5.40); White Blood Cell (WBC) Count 5.6 thou/uL (4.8-10.8)
[2019-04-04 05:16] LABS: Anion Gap 12 mmol/L (10-20); BUN (Urea Nitrogen) 25 mg/dL (9.8-20.1); Calc. Creatinine Clearance 56 mL/min (70-130); Calcium 8.1 mg/dL (7.8-10.44); Carbon Dioxide 20 mmol/L (23-31); Chloride 100 mmol/L (98-107); Estimated GFR-MDRD 78; Glucose 117 mg/dL (83-110); Potassium 4.8 mmol/L (3.5-5.1); Sodium 127 mmol/L (136-145)
[2019-04-04] MEDS: Ondansetron PF 4 MG/2 ML Vial IVP PRN ×3 (08:24→21:08)
[2019-04-04] MEDS ORDERED: Senokot 8.6 MG TAB PO PRN ×2 (08:25→08:46)
[2019-04-04] MEDS ORDERED: Ondansetron ODT 8 MG TAB PO PRN ×2 (08:25→08:46)
[2019-04-04] MEDS ORDERED: PROPAFENONE HCL PO SCH (08:30)
[2019-04-04] MEDS ORDERED: Pantoprazole 40 MG VIAL IVP SCH (09:00)
[2019-04-04] MEDS ORDERED: OSIMERTINIB MESYLATE PO SCH ×2 (09:00)
[2019-04-04] MEDS ORDERED: Gabapentin 100 MG CAP PO SCH ×2 (09:00)
[2019-04-04] MEDS ORDERED: Gabapentin 300 MG CAP PO SCH (09:00)
--- NOTE | 2019-04-04 10:52 | PDOC.HOSPP ---
- Subjective Encounter Date: 04/04/19 Encounter Time: 10:50 Subjective: Ms. Mcleod was seen today in follow-up of generalized weakness and hyponatremia. She says she is feeling better this morning. She is less weak. - Objective Vital Signs & Weight: Vital Signs (12 hours) Temp Pulse Resp BP Pulse Ox 04/04/19 07:30 97.5 F L 106 H 20 100/73 97 04/04/19 04:04 95.9 F L 108 H 20 87/60 L 94 L 04/04/19 02:35 94/72 04/03/19 23:58 96.3 F L 109 H 18 91/57 L 95 04/03/19 23:43 97.4 F L 90/53 L Weight Weight 116 lb 12.8 oz I&O: 04/03/19 04/04/19 04/05/19 06:59 06:59 06:59 Intake Total 936 Output Total 400 Balance 536 Result Diagrams: 04/04/19 04:10 04/04/19 04:10 Additional Labs: Accuchecks 04/03/19 12:53 POC Glucose 83 ROS - Medication Medications: Active Medications Generic Name Dose Route Start Last Admin Trade Name Freq PRN Reason Stop Dose Admin Ondansetron HCl 4 mg 04/03/19 19:43 04/04/19 08:24 Zofran IVP 4 mg Q6H PRN Administration Nausea/Vomiting Pantoprazole Sodium 40 mg 04/04/19 09:00 04/04/19 08:24 Protonix IVP 40 mg DAILY MYRIAM Administration Tramadol HCl 50 mg 04/03/19 17:42 04/04/19 06:13 Ultram PO 50 mg Q6H PRN Administration Moderate Pain (4-6) Tramadol HCl 100 mg 04/03/19 17:42 04/04/19 08:50 Ultram PO 100 mg Q6H PRN Administration .Severe Pain (7-10) - Exam Eye: PERRL, anicteric sclera ENT: normocephalic atraumatic, no oropharyngeal lesions Heart: RRR, no murmur, no gallops, no rubs, normal peripheral pulses Respiratory: CTAB, no wheezes, no rales, no ronchi, normal chest expansion Gastrointestinal: soft, non-tender, non-distended, normal bowel sounds, no palpable masses, no hepatomegaly Extremities: no cyanosis, no edema Hosp A/P (1) Hypernatremia Code(s): E87.0 - HYPEROSMOLALITY AND HYPERNATREMIA Status: Acute (2) Generalized weakness Code(s): R53.1 - WEAKNESS Status: Acute (3) Adenocarcinoma of lung, stage 4 Code(s): C34.90 - MALIGNANT NEOPLASM OF UNSP PART OF UNSP BRONCHUS OR LUNG Status: Acute (4) Dysphagia Code(s): R13.10 - DYSPHAGIA, UNSPECIFIED Status: Acute (5) Hypertension Code(s): I10 - ESSENTIAL (PRIMARY) HYPERTENSION Status: Chronic (6) Chronic atrial fibrillation Code(s): I48.2 - CHRONIC ATRIAL FIBRILLATION Status: Chronic - Plan * Hyponatremia- her sodium remained stable after hydration. Will continue IV fluids, and She is also taking Tolvaptan which will be continued * Dysphagia- this has improved. This was likely due to dehydration and deconditioning. She did well with the swallowing evaluation. * HTN- blood pressure is stable * AFIB- heart rate is stable * Generalized weakness and failure to thrive, - will add Megace for appetite support * PT/OT evaluation * MRI is pending to determine any significant changes
--- NOTE | 2019-04-04 11:22 | MRI ---
MRI BRAIN WITHOUT CONTRAST: HISTORY: Nausea and generalized weakness, lung cancer. Currently on oral chemotherapy, hyponatremia COMPARISON: 06/08/2016 CORRELATION: CT scan from 04/03/2019. FINDINGS: No restricted diffusion is seen. There are multiple foci of T2 prolongation in the periventricular wh ite matter, consistent with chronic small vessel ischemic disease. The ventricular size is appropriate and the basilar cisterns are patent. No evidence of acute infarct, hemorrhage, midline shift or abnormal extra-axial fluid collections is seen. The visualized paranasal sinuses and mastoid air cells are well-aerated. Absence of IV contrast precludes exclusion of metastatic disease. IMPRESSION: No evidence of acute intracranial process.
[2019-04-04] MEDS: Gabapentin 300 MG CAP PO SCH ×3 (11:54→23:04)
--- NOTE | 2019-04-04 11:56 | CON ---
DATE OF CONSULTATION: 04/04/2019 CONSULTING PHYSICIAN: Dr. Griffin. REASON FOR CONSULTATION: Hyponatremia. REASON FOR ADMISSION: Weakness. HISTORY OF PRESENT ILLNESS: A 73-year-old female with history of lung cancer on followup with [facility] and hyponatremia, chronic atrial fibrillation, hypertension, hyperlipidemia, came to the hospital with above complaints and was having not feeling well, having poor . Her sodium was 125. She was started on gentle hydration. Sodium this morning was 127. She was also hyperkalemic. The patient was on Samsca, which is on hold now. No fever or chills. No nausea or vomiting. No abdominal pain. She did have nausea and vomiting. PAST MEDICAL HISTORY: Positive for atrial fibrillation, hypertension, hyperlipidemia, diverticulitis, stage IV adenocarcinoma. PAST SURGICAL HISTORY: Hysterectomy, right ankle surgery, cardiac ablation, lumpectomy, right lung biopsy. HOME MEDICATIONS: 1. Tagrisso. 2. Samsca. 3. Gabapentin. 4. Tramadol. 5. GlycoLax. 6. Robaxin. 7. Calcium. 8. Vitamin B12. 9. Magnesium. 10. Edarbyclor. 11. Simvastatin. 12. Xarelto. 13. Estrace. 14. Metoprolol. 15. Rythmol. 16. Cholecalciferol. 17. Vitamin D3. ALLERGIES: SOREN INHIBITOR, PENICILLINS, AND MEPIVACAINE. SOCIAL HISTORY: No smoking, alcohol, or illicit drugs. FAMILY HISTORY: No history of kidney disease. REVIEW OF SYSTEMS: CONSTITUTIONAL: Negative for weight loss or gain, ability to conduct usual activities. SKIN: Negative for rash, itching. EYES: Negative for double vision, pain. ENT/MOUTH: Negative for nose bleeding, neck stiffness, pain, tenderness. CARDIOVASCULAR: Negative for palpitations, dyspnea on exertion, orthopnea. RESPIRATORY: Negative for shortness of breath, wheezing, cough, hemoptysis, fever or night sweats. GASTROINTESTINAL: Negative for poor appetite, abdominal pain, heartburn, nausea, vomiting, constipation, or diarrhea. GENITOURINARY: Negative for urgency, frequency, dysuria, nocturia. MUSCULOSKELETAL: Negative for pain, swelling. NEUROLOGIC/PSYCHIATRIC: Negative for anxiety, depression. ALLERGY/IMMUNOLOGIC: Negative for skin rash, bleeding tendency. PHYSICAL EXAMINATION: GENERAL: This is a thin built female, in no apparent distress. VITAL SIGNS: Temperature 97.5, pulse 103, respiratory rate 18, blood pressure 100/77. HEENT: Atraumatic and normocephalic. NECK: Supple. CV: S1 and S2 heard. Rate and rhythm regular. RESPIRATORY: Clear. GI: Abdomen is soft. MUSCULOSKELETAL: 2+ edema. DERMATOLOGIC: No skin rash. NEUROLOGIC: Awake. PSYCH: Mood and affect are normal. LABORATORY DATA: Hemoglobin 10.9. Potassium 4.8, sodium 127, BUN is 25, creatinine is 0.7. ASSESSMENT AND PLAN: 1. Hyponatremia, seems to be volume depletion, seems edema had resolved, so plan to have gentle hydration. We will reduce IV fluids. We will hold Samsca for now. 2. We will check urine studies. 3. Edema, which is chronic. 4. Mild hypoalbuminemia. 5. Hyperkalemia, better. 6. Small metabolic acidosis. 7. Anemia of chronic disease. 8. History of hypertension. Blood pressure stable. 9. We will monitoring of sodium and we will hold Samsca for now. We will check urine studies. Thank you for the consult. Job ID: [id number]
[2019-04-04] MEDS: Dextrose 5 % And 0.9 % NaCl 1,000 ML IV SCH ×2 (12:01→12:35)
[2019-04-04] MEDS: Tolvaptan 15 MG TAB PO SCH (12:09)
[2019-04-04] MEDS: Propafenone HCl 150 MG TAB PO SCH ×2 (12:33→21:07)
[2019-04-04 15:09] LABS: Creatinine, Urine 55.63 mg/dL (47-110); Sodium, Urine Less than 20 mmol/L (Not Available)
--- NOTE | 2019-04-04 16:45 | PDOC.FMACP ---
Advance Care Planning - Problem (1) Hypernatremia Status: Acute Code(s): E87.0 - HYPEROSMOLALITY AND HYPERNATREMIA (2) Generalized weakness Status: Acute Code(s): R53.1 - WEAKNESS (3) Adenocarcinoma of lung, stage 4 Status: Acute Code(s): C34.90 - MALIGNANT NEOPLASM OF UNSP PART OF UNSP BRONCHUS OR LUNG (4) Dysphagia Status: Acute Code(s): R13.10 - DYSPHAGIA, UNSPECIFIED (5) Hypertension Status: Chronic Code(s): I10 - ESSENTIAL (PRIMARY) HYPERTENSION (6) Chronic atrial fibrillation Status: Chronic Code(s): I48.2 - CHRONIC ATRIAL FIBRILLATION - Note Summary: Advanced Care Planning was discussed. Code status was again addressed, and she would like to remain full code. We also discussed the differences between Palliative Care and Hospice. She would like more information regarding this. All questions were answered. The Palliative Care Team will be engaged to assist with completion of any outstanding forms that are needed. Discussion were made with the patient her daughter and granddaughter. Time Spent (mins): 20
[2019-04-05] MEDS: traMADol HCl 50 MG TAB PO PRN ×4 (03:39→15:29)
[2019-04-05 05:10] LABS: Anion Gap 12 mmol/L (10-20); BUN (Urea Nitrogen) 22 mg/dL (9.8-20.1); Calc. Creatinine Clearance 62 mL/min (70-130); Calcium 7.9 mg/dL (7.8-10.44); Carbon Dioxide 17 mmol/L (23-31); Chloride 102 mmol/L (98-107); Estimated GFR-MDRD 87; Glucose 106 mg/dL (83-110); Potassium 4.7 mmol/L (3.5-5.1); Sodium 126 mmol/L (136-145)
[2019-04-05] MEDS: Propafenone HCl 150 MG TAB PO SCH ×2 (05:55→14:00)
[2019-04-05 05:58] VITALS: BMI 21.4
[2019-04-05] MEDS: Ondansetron PF 4 MG/2 ML Vial IVP PRN (08:28)
[2019-04-05] MEDS ORDERED: Megestrol Acetate 800 MG/20 ML UDCUP PO SCH (09:00)
[2019-04-05] MEDS: Tolvaptan 15 MG TAB PO SCH (10:06)
[2019-04-05] MEDS: Gabapentin 300 MG CAP PO SCH ×2 (10:09→14:12)
[2019-04-05] MEDS ORDERED: Tolvaptan 15 MG TAB PO ONE (11:00)
[2019-04-05] MEDS: Dextrose 5 % And 0.9 % NaCl 1,000 ML IV SCH (11:16)
--- NOTE | 2019-04-05 11:52 | PRG ---
DATE OF SERVICE: 04/05/2019 SUBJECTIVE: Patient was seen and examined at bedside and overnight events noted. Patient denies any shortness of breath or chest pain or palpitation. No history of nausea or vomiting or diarrhea or fever or chills or cramps. OBJECTIVE: GENERAL: This is an elderly female, in no apparent distress. VITAL SIGNS: Temperature 98. Heart rate 108. Respiratory rate 15. Blood pressure 88/60. HEENT: Atraumatic, normocephalic. Oral mucosa is moist NECK: Supple. CARDIOVASCULAR: S1, S2 heard. Rate and rhythm regular. RESPIRATORY: Clear to auscultation. GASTROINTESTINAL: Abdomen is soft. MUSCULOSKELETAL: No tenderness. No edema. DERMATOLOGIC: No skin rash. NEUROLOGIC: Alert and awake and oriented X3. No focal neurologic deficits. Moving all the extremities. PSYCHIATRIC: Mood and affect normal. LABORATORY DATA: Potassium 4.7, sodium is 126, creatinine is 0.6. ASSESSMENT AND PLAN: 1. Hyponatremia secondary to syndrome of inappropriate antidiuretic hormone secretion. Plan is to start back on Samsca. We will give a dose of Samsca 15 mg b.i.d. 2. Edema. 3. Hyperkalemia. 4. lung cancer. 5. We will continue on Samsca, monitor sodium closely. Job ID: [id number]
--- NOTE | 2019-04-05 13:50 | PDOC.PALCO ---
Palliative Care Consult - Consult Details Requesting Physician: Dr Griffin Reason for Consult: goals of care Family Members Present: Granddaughter, Gurdeep Cheung. - Pertinent HPI 73 year old female with IV adenocarcinoma of the lungs who is receiving treatment at [facility], just finishing a round of radiation for metastatic lesions to her brain prior to presentation to the emergency room. Patient presented with increase in weakness, nausea, and difficultly swallowing. Emergency room identified clinical dehydration and patient was admitted for observation. Palliative Care consult for goals of care and symptom management. 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 - Social History Smoking Status: Never smoker Smoking: no tobacco exposure Alcohol Use: none Drug Use History: none Living Situation: - Medications MAR Reviewed: Yes - Allergies Allergies/Adverse Reactions: Allergies Allergy/AdvReac Type Severity Reaction Status Date / Time mepivacaine HCl Allergy Intermediate facial Verified 06/08/16 03:47 [From Carbocaine] edema Penicillins Allergy Mild Rash Verified 06/08/16 03:47 SOREN Inhibitors Allergy Rash Verified 06/08/16 03:47 IV CONTRAST Allergy Severe INTRACTIBLE Uncoded 05/20/15 23:56 VOMITING - Subjective Awake, alert and fully oriented at todays assessment. Family at bedside. Remains with persistent nausea, dysphagia, generalized weakness, poor appetite. Patient expressed dry mouth, concern over nausea, and weakness. ROS: intermittent difficulty swallowing, weakness, fatigue, nausea, no vomiting at present. All other systems negative - Objective Vital Signs: Vital Signs - Most Recent Temp Pulse Resp BP Pulse Ox 96.6 F L 102 H 16 91/65 94 L 04/05/19 12:08 04/05/19 12:08 04/05/19 12:08 04/05/19 12:08 04/05/19 12:08 Palliative Performance Scale: 30 - Advance Directives Medical Power of Garment Form Assembler: Gurdeep Cheung - Physical Exam Deviation from normal: Cachetic, emaciated, weakness HEENT: moist MMs, EOMI Deviation from normal: Labored respirations with minimal activity Cardiovascular: irregular Gastrointestinal: soft, non-tender Musculoskeletal: edema present Deviation from normal: +2 to lower extremities Psychiatric: A&O x 3 Deviation from normal: Mildly lethargic Deviation from normal: Brusing to chin - Problem List (1) Palliative care encounter Code(s): Z51.5 - ENCOUNTER FOR PALLIATIVE CARE Current Visit: Yes Status: Acute Assessment: Cancer of the lung with metastasis to brain. Radiation treatment resulting in nausea, fatigue, generalized weakness. (2) Nausea Code(s): R11.0 - NAUSEA Current Visit: Yes Status: Acute Assessment: Requested scheduled Zofran ODT since the patient would be going home with ODT, IVP to be given if PO dose not tolerated. (3) Dysphagia Code(s): R13.10 - DYSPHAGIA, UNSPECIFIED Current Visit: Yes Status: Acute (4) Generalized weakness Code(s): R53.1 - WEAKNESS Current Visit: Yes Status: Acute Assessment: Muscle wasting, limited movement secondary to weakness. - Plan/Recommendations Plan: *Patient wishes to remain a full code at this time * Dexamethasone 4mg for appetite stimulant and hopeful to increase activity *Oral care to enhance appetite/ oral swabs and lemon *Schedule Zofran ODT and utilize IVP when ODT not tolerated [60] minutes spent on this encounter with >50% of the time in counseling and coordination of care. Thank you for this very appropriate consult.
[2019-04-05] MEDS ORDERED: Ondansetron ODT 4 MG TAB PO SCH (14:00)
--- NOTE | 2019-04-05 17:33 | PDOC.HOSPP ---
- Subjective Encounter Date: 04/05/19 Encounter Time: 10:35 Subjective: Ms. Mcleod was seen today in follow-up this morning. She continues to feel weak, but overall improved from admission. She notes some lower back pain. - Objective Vital Signs & Weight: Vital Signs (12 hours) Temp Pulse Pulse Pulse Resp BP BP 04/05/19 14:22 101 H 100 92/66 91/66 04/05/19 12:08 96.6 F L 102 H 16 04/05/19 08:36 96.6 F L 92 12 BP Pulse Ox 04/05/19 14:22 04/05/19 12:08 91/65 94 L 04/05/19 08:36 85/62 L 95 Weight Admit Weight 116 lb 11.2 oz Weight 117 lb 4.8 oz I&O: 04/04/19 04/05/19 04/06/19 06:59 06:59 06:59 Intake Total 936 2240 15 Output Total 400 200 Balance 536 2040 15 Result Diagrams: 04/04/19 04:10 04/05/19 04:26 ROS - Medication Medications: Active Medications Generic Name Dose Route Start Last Admin Trade Name Freq PRN Reason Stop Dose Admin Gabapentin 300 mg 04/04/19 21:00 04/05/19 14:12 Neurontin PO Not Given TID MYRIAM Ondansetron HCl 4 mg 04/03/19 19:43 04/05/19 08:28 Zofran IVP 4 mg Q6H PRN Administration Nausea/Vomiting Ondansetron HCl 4 mg 04/05/19 14:00 04/05/19 15:28 Zofran Odt PO 4 mg [id number] MYRIAM Administration Pantoprazole Sodium 40 mg 04/05/19 09:00 04/05/19 10:03 Protonix PO 40 mg DAILY MYRIAM Administration Propafenone HCl 150 mg 04/05/19 06:00 04/05/19 14:00 Rythmol PO 150 mg Q8HR MYRIAM Administration Senna 1 tab 04/04/19 08:46 04/04/19 21:08 Senokot PO 1 tab BID PRN Administration Constipation Tolvaptan 7.5 mg 04/04/19 09:00 04/05/19 10:06 Samsca PO 7.5 mg DAILY MYRIAM Administration Tramadol HCl 50 mg 04/03/19 17:42 04/05/19 15:29 Ultram PO 50 mg Q6H PRN Administration Moderate Pain (4-6) Tramadol HCl 100 mg 04/03/19 17:42 04/05/19 05:55 Ultram PO 100 mg Q6H PRN Administration .Severe Pain (7-10) - Exam Eye: PERRL, anicteric sclera Heart: RRR, no murmur, no gallops, no rubs, normal peripheral pulses Respiratory: CTAB, no wheezes, no rales, no ronchi, normal chest expansion Gastrointestinal: soft, non-tender, non-distended, normal bowel sounds, no palpable masses, no hepatomegaly Extremities: no cyanosis, no clubbing, no edema, 2+ LE edema (+ pitting edema of both lower exrtemities) Neurological: no new deficit Psychiatric: normal affect, normal behavior, A&O x 3 Hosp A/P (1) Hypernatremia Code(s): E87.0 - HYPEROSMOLALITY AND HYPERNATREMIA Status: Acute (2) Generalized weakness Code(s): R53.1 - WEAKNESS Status: Acute (3) Adenocarcinoma of lung, stage 4 Code(s): C34.90 - MALIGNANT NEOPLASM OF UNSP PART OF UNSP BRONCHUS OR LUNG Status: Acute (4) Dysphagia Code(s): R13.10 - DYSPHAGIA, UNSPECIFIED Status: Acute (5) Hypertension Code(s): I10 - ESSENTIAL (PRIMARY) HYPERTENSION Status: Chronic (6) Chronic atrial fibrillation Code(s): I48.2 - CHRONIC ATRIAL FIBRILLATION Status: Chronic - Plan * Hyponatremia- sodium level has remained relatively stable * [facility] has been held by Nephrology * Dysphagia- she is tolerating a solid diet. * HTN- blood pressure is stable * AFIB- heart rate is stable * Generalized weakness and failure to thrive, - Discussed with Emilie RIVERO with Palliative care, and will transition her to Decadron * MRI did not demonstrate any major changes- intentionally a non-contrast study. * Stable for discharge home
[2019-04-05 18:02] VITALS: BP 97/65; TEMP 98.3
[2019-04-05] MEDS ORDERED: Lorazepam 0.5 MG TAB PO PRN (19:02)
--- NOTE | 2019-04-05 23:44 | DIS ---
DATE OF ADMISSION: 04/03/2019 DATE OF DISCHARGE: 04/05/2019 DISCHARGE DISPOSITION: Home with Home Health. DISCHARGE DIAGNOSES: 1. Hyponatremia. 2. Volume depletion and dehydration. 3. Adenocarcinoma of the lung, stage IV. 4. Moderate protein-calorie malnutrition. 5. Atrial fibrillation. 6. Hypertension. 7. Dyslipidemia. DISCHARGE MEDICATIONS: Include: 1. Decadron 4 mg daily. 2. Tramadol 100 mg twice a day and 50 mg q.4 hours as needed. 3. Samsca 7.5 mg p.o. daily. 4. Senna 8.6 mg twice a day. 5. Propafenone 225 mg q.8 hours. 6. Prochlorperazine 10 mg q.6. 7. Tagrisso 80 mg daily. 8. Omeprazole 40 mg daily. 9. Methocarbamol 500 mg q.12. 10. Neurontin 300 mg t.i.d. CODE STATUS: Full code. PROCEDURES DONE DURING THE ADMISSION: The patient had a CT scan of the brain, which was negative for any acute intracranial abnormalities. The patient also had an MRI of the brain in which there was no evidence of any acute intracranial abnormalities and MRI of the brain was noncontrast. ALLERGIES: MEPIVACAINE, PENICILLIN, SOREN INHIBITORS, AND IV CONTRAST. HOSPITAL COURSE: Ms. Mcleod is a pleasant 73-year-old female, who presented to the emergency room after having difficulty swallowing as well as generalized weakness. The full details of which are outlined in the history and physical. She has recently completed radiation treatment for metastatic lesions to her brain. This was done at [facility] [place]. She also had been hospitalized there for hyponatremia as well. During this time, she has gotten progressively weaker and she came to the ER for evaluation. In the ER, she was found to be slightly more hyponatremic than her baseline and also was extremely weak and could barely swallow. She was placed on IV fluids, which improved her symptoms actually dramatically overnight with regard to her symptomatic feeling of weakness as well as her dysphagia. She was cleared by Speech Therapy to tolerate a solid diet. She was visited by the Palliative Care team by her wishes and this was done to help clarify some questions she had with regard to palliative care versus hospice. The patient has decided on going home with palliative care. She still wants active treatment for her lung cancer and is not yet ready to give up with regard to potentially getting a carer. For this reason, she will not be placed on hospice but she does want that option open should that time come. She is therefore being discharged home with Home Health with an agency that can provide both palliative care and hospice. Job ID: [id number]
[2019-04-06] MEDS ORDERED: Dexamethasone 4 MG TAB PO SCH (08:00)
== END 2019-04-05 19:30 | disposition home health service (06) ==
LOC: ERS 12:05 → 2NO 16:52
PROVIDERS: ADMIT Internal Medicine; ATTEND Internal Medicine
DX: E87.1 Hypo-osmolality and hyponatremia (principal); E86.0 Dehydration; C34.90 Malignant neoplasm of unspecified part of unspecified bronchus or lung; E44.0 Moderate protein-calorie malnutrition; I10 Essential (primary) hypertension; I48.91 Unspecified atrial fibrillation; E78.5 Hyperlipidemia, unspecified; Z68.21 Body mass index [BMI] 21.0-21.9, adult; Z79.01 Long term (current) use of anticoagulants; Z79.899 Other long term (current) drug therapy; Z88.0 Allergy status to penicillin; Z88.8 Allergy status to other drugs, medicaments and biological substances; Z91.041 Radiographic dye allergy status
CPT/HCPCS: 70450; 70551; 71045; 80048 ×3; 80053; 82553; 82570; 82962; 83935; 84300; 84484 ×2; 85025 ×2; 87086; 93005; 94760; 96361 ×3; 96374; 96375 ×2; 96376 ×2; 97139 ×4; 97530; 99285; G0378 ×4; 36415; 36416; 81003; 81015; C9113; J0360; J0696; J2405; Q0162